=== PATIENT | female | born 1970 | race Caucasian/White ===

== ENCOUNTER 2016-09-21 10:38 | Emergency (ER) | payer BC ==
[~2016-09-21] VITALS: Ht 162.6 cm; Wt 71.7 kg
[2016-09-21 12:53] VITALS: BP 130/73
== END 2016-09-21 13:48 | disposition home or self-care (01) ==
LOC: ED 10:38
DX: M54.12 Radiculopathy, cervical region (principal); I10 Essential (primary) hypertension; E11.9 Type 2 diabetes mellitus without complications; E78.00 Pure hypercholesterolemia, unspecified
CPT/HCPCS: J1885

== ENCOUNTER 2017-03-30 13:20 | Emergency (ER) | payer BC ==
[~2017-03-30] VITALS: Ht 157.5 cm; Wt 70.8 kg
[2017-03-30 14:23] LABS: BASOPHIL % 0.4 % (0-2); PLATELET COUNT 200 x10^3mcL (130-400); RED CELL DISTRIBUTION WIDTH 13.8 % (11.5-14.5)
[2017-03-30 14:26] LABS: CALCIUM 7.8 mg/dL (8.5-10.1); CARBON DIOXIDE 28.5 mmol/L (21-32); CHLORIDE SERUM 100 mmol/L (98-107); GFR1 > 60 mL/min; GLUCOSE SERUM 349 mg/dL (74-106); POTASSIUM SERUM 3.4 mmol/L (3.5-5.1); SODIUM SERUM 137 mmol/L (136-145)
[2017-03-30 14:30] LABS: ALKALINE PHOSPHATASE 58 U/L (46-116); ALT/SGPT 24 U/L (14-59); AMYLASE 75 U/L (25-115); AST/SGOT 17 U/L (15-37); BILIRUBIN TOTAL 0.4 mg/dL (0.20-1.00); CHOLESTEROL 160 mg/dL (<200); LIPASE 274 IU/L (73-393); TOTAL PROTEIN, SERUM 7.5 g/dL (6.4-8.2)
[2017-03-30 14:32] LABS: microscopic required? YES; urine erythrocyte TRACE (NEGATIVE)
[2017-03-30 14:32] LABS: ALBUMIN 3.3 g/dL (3.4-5.0); HDL CHOLESTEROL 74 mg/dL (40-60)
[2017-03-30 17:08] VITALS: BP 126/70
== END 2017-03-30 17:54 | disposition home or self-care (01) ==
LOC: ED 13:20
PROVIDERS: Emergency Medicine
DX: J10.1 Influenza due to other identified influenza virus with other respiratory manifestations (principal); J98.01 Acute bronchospasm; E11.65 Type 2 diabetes mellitus with hyperglycemia; E87.6 Hypokalemia; E46 Unspecified protein-calorie malnutrition; I10 Essential (primary) hypertension; E78.00 Pure hypercholesterolemia, unspecified
CPT/HCPCS: 36600; 82962; 83880; 87804; J7030

== ENCOUNTER 2018-01-03 08:35 | Emergency (ER) | payer BC ==
[~2018-01-03] VITALS: Ht 160 cm; Wt 71.8 kg
[2018-01-03 10:14] LABS: UA SPECIFIC GRAVITY >=1.030 (1.005-1.035); microscopic required? YES; urine erythrocyte TRACE (NEGATIVE)
[2018-01-03 11:05] VITALS: BP 131/88
== END 2018-01-03 11:05 | disposition home or self-care (01) ==
LOC: ED 08:35
PROVIDERS: Emergency Medicine
DX: S39.012A Strain of muscle, fascia and tendon of lower back, initial encounter (principal); N76.0 Acute vaginitis; E11.9 Type 2 diabetes mellitus without complications; I10 Essential (primary) hypertension; E78.00 Pure hypercholesterolemia, unspecified; X58.XXXA Exposure to other specified factors, initial encounter; Y93.89 Activity, other specified; Y92.89 Other specified places as the place of occurrence of the external cause; Y99.8 Other external cause status
CPT/HCPCS: 82962; J1100; J1885

== ENCOUNTER 2018-12-15 05:22 | Emergency (ER) | payer BC ==
[~2018-12-15] VITALS: Ht 162.6 cm; Wt 71.8 kg
[2018-12-15 05:24] VITALS: Ht 162.6 cm; Wt 71.8 kg
[2018-12-15 06:51] VITALS: BP 127/68
== END 2018-12-15 06:51 | disposition home or self-care (01) ==
LOC: ED 05:22
DX: N39.0 Urinary tract infection, site not specified (principal); I10 Essential (primary) hypertension; E11.9 Type 2 diabetes mellitus without complications; E78.00 Pure hypercholesterolemia, unspecified
CPT/HCPCS: J0696